=== PATIENT | male | born 1945 | race Hispanic/Latino ===

== ENCOUNTER 2017-08-23 11:38 | Emergency (ER) | payer BC, MEDICARE ==
--- NOTE | 2017-08-23 11:55 | C.PDOC ---
History Of Present Illness Patient BIBA s/p syncopal episode x 2. As per EMS, patient was helping friends move furniture in the heat/hot sun, did not have any breakfast or water. Patient has first syncopal episode that lasted approx 2 min, then another one in the ambulance that lasted approx 15 seconds. Patient was diaphoretic and hypotensive in the field. He denies headache, dizziness, chest pain, palpitations, SOB, abdominal pain, nausea/vomiting/diarrhea, visual changes, gait changes, facial droop, slurred speech, extremity weakness, senrory changes. 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) Activity At Onset Of Symptoms: Standing Associated Symptoms Preceding Syncopal Episode: Lightheadedness Past Medical History Reviewed: Historical Data, Nursing Documentation, Vital Signs Vital Signs: Last Vital Signs Temp 97.4 F L 08/23/17 15:03 Pulse 64 08/23/17 15:03 Resp 20 08/23/17 15:03 BP 135/85 08/23/17 15:03 Pulse Ox 99 08/23/17 15:03 - Medical History Other PMH: hyperlipidemia Family History: States: No Known Family Hx Review Of Systems Constitutional: Negative for: Fever, Chills Cardiovascular: Negative for: Chest Pain, Palpitations Respiratory: Negative for: Cough, Shortness of Breath Gastrointestinal: Negative for: Nausea, Vomiting, Abdominal Pain Neurological: Positive for: Other (syncope). Negative for: Weakness, Numbness, Change in Speech, Confusion, Seizures, Altered Mental Status, Headache Physical Exam - Physical Exam Appears: Well, Non-toxic, No Acute Distress Skin: Diaphoretic (mild) Head: Atraumatic, Normacephalic Eye(s): bilateral: Normal Inspection, PERRL, EOMI Neck: Normal, Normal ROM, No Midline Cervical Tenderness, No Paracervical Tenderness, No Step Off Deformity, Supple Cardiovascular: Rhythm Regular Respiratory: Normal Breath Sounds, No Rales, No Rhonchi, No Wheezing Gastrointestinal/Abdominal: Normal Exam, Bowel Sounds, Soft, No Tenderness Extremity: Normal ROM, No Pedal Edema, No Calf Tenderness Extremity: Bilateral: Atraumatic, Normal Color And Temperature, Normal ROM Neurological/Psych: Oriented x3, Normal Speech, Normal Cognition, Normal Cranial Nerves, No Cerebellar Signs, Normal Motor, Normal Sensation ED Course And Treatment - Laboratory Results Result Diagrams: 08/23/17 12:13 08/23/17 12:13 ECG: Interpreted By Me, Viewed By Me (NSR 81 bpm, normal axis, no acute ST/T wave changes) ECG Interpretation: Normal O2 Sat by Pulse Oximetry: 99 (RA) Pulse Ox Interpretation: Normal - CT Scan/US CT HEAD Other Rad Studies (CT/US): Read By Radiologist, Radiology Report Reviewed CT/US Interpretation: ccession No. : [id number]. Patient Name / ID : RHEA LYNNE / [id number]. Exam Date : 08/23/2017 12:33:13 ( Approved ). Study Comment : Sex / Age : M / 71Y. Creator : Ron Evans MD. Dictator : Jr. Systems Administrator : Communications Agent : Ron Evans MD. Approver2 : Report Date : 08/23/2017 13:02:48. My Comment : . PROCEDURE: CT HEAD WITHOUT CONTRAST. HISTORY: syncope x 2. COMPARISON: None available. TECHNIQUE: Axial computed tomography images were obtained through the head/brain without intravenous contrast. Radiation dose: Total exam DLP = 893.31 mGy-cm. This CT exam was performed using one or more of the following dose reduction techniques: Automated exposure control, adjustment of the mA and/or kV according to patient size, and/or use of iterative reconstruction technique. FINDINGS: HEMORRHAGE: No intracranial hemorrhage. BRAIN: No evidence of large acute infarct. Minor chronic periventricular white matter ischemic changes. . There are a few tiny chronic appearing bilateral basal nuclei lacunar type infarcts. Moderate volume loss somewhat more central evidenced by slight disproportionate enlargement of the ventricles compared the sulci. There are no parenchymal nor extra-axial masses. Prominent cisterna magna. VENTRICLES: No obstructive hydrocephalus. CALVARIUM: No acute calvarial fractures. PARANASAL SINUSES: Complete opacification left maxillary antrum formation with slight bowing of the medial wall; rule out mucocele formation. There is also subtotal opacification of the ethmoid air complex on left side greater than right extending superiorly into the frontal sinus. . There is sclerosis and under pneumatization of both mastoid air complexes. Partial opacification many of the left sided inferior mastoid air cells. MASTOID AIR CELLS: Unremarkable as visualized. No inflammatory changes. OTHER FINDINGS: None. IMPRESSION: No acute intracranial hemorrhage. Minor chronic periventricular white matter ischemic changes. 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 Moderate central volume loss. Complete opacification left maxillary antrum with slight bone medial wall. Rule out mucocele. Subtotal opacification ethmoid air complex extending superiorly into the frontal sinus. Progress Note: Blood work, EKG, CT head ordered. Patient given IV NS bolus x 2 liters. Orthostatic vitals done and WNL. Reevaluation Time: 15:05 Reassessment Condition: Improved (On reassessment, patient is resting comfortably and states he feels much better. Vitals have improved. Patient offered inpatient observation, however he refused and wants to be dischared home. Syncopal episodes likely due to dehydration/heat exhaustion, not having breaksfast/water. Patient instructed to drink plenty of fluids, get rest and follow up with PMD in 1-2 days. Copies of all studies/labs given to patient/ family and results explained. He understands he should return to ED immediately if he has any concerning symptoms.) Critical Care Time - Critical Care Note Total Time (in mins): 35 Documented critical care: time excludes all time spent performing seperately billable procedures. Disposition Counseled Patient/Family Regarding: Studies Performed, Diagnosis, Need For Followup - Disposition Referrals: Winston Palomo MD [Medical Doctor] - Disposition: HOME/ ROUTINE Disposition Time: 15:05 Condition: STABLE Additional Instructions: FOLLOW UP WITH YOUR PRIMARY DOCTOR IN 1-2 DAYS, BRING COPIES OF BLOOD WORK/ STUDIES DONE IN ER DRINK PLENTY OF WATER RETURN TO EMERGENCY ROOM IF YOU HAVE ANY CONCERNING SYMPTOMS Instructions: Heat Exhaustion and Heat Stroke (DC) Forms: [employer] (Kosovan) Print Language: URUGUAYAN - Clinical Impression Clinical Impression: Syncope, Heat exhaustion
[2017-08-23] MEDS ORDERED: Sodium Chloride 0.9% 1,000 ML IV ONE ×2 (12:08→13:29)
[2017-08-23 12:17] LABS: BASO # 0.1 K/uL (0.0-0.2); BASO % 1.8 % (0.0-2.0); EOS # 0.3 K/uL (0.0-0.7); HEMOGLOBIN 14.2 g/dL (12.0-18.0); LYMPH % 43.7 % (20.0-40.0); MEAN CELL VOLUME 90.3 fL (80.0-94.0); MEAN CORPUSCULAR HEMOGLOBIN 31.2 pg (27.0-31.0); MEAN CORPUSCULAR HGB CONC 34.5 g/dL (33.0-37.0); MEAN PLATELET VOLUME 8.5 fL (7.2-11.7); MONO # 0.4 K/uL (0.0-0.8); MONO % 5.7 % (0.0-10.0); NEUT % 43.8 % (50.0-75.0); RBC 4.55 Mil/uL (4.40-5.90); RED CELL DISTRIBUTION WIDTH 13.1 % (11.5-14.5); WHITE BLOOD COUNT 6.9 K/uL (4.8-10.8)
[2017-08-23 12:25] LABS: INR 1.1; PROTHROMBIN TIME 11.8 SECONDS (9.7-12.2)
[2017-08-23 12:29] LABS: ALB/GLOB RATIO 1.4 (1.0-2.1); ALBUMIN 4.5 g/dL (3.5-5.0); ALT/SGPT 36 U/L (21-72); AST/SGOT 40 U/L (17-59); BLOOD UREA NITROGEN 24 mg/dL (9-20); CALCIUM 9.4 mg/dl (8.6-10.4); GFR AFRICAN-AMERICAN > 60; GFR NON-AFRICAN AMERICAN 54
[2017-08-23 12:39] LABS: CK-MB 4.76 ng/mL (0.0-3.38)
--- NOTE | 2017-08-23 13:04 | CT ---
PROCEDURE: CT HEAD WITHOUT CONTRAST. HISTORY: syncope x 2 COMPARISON: None available. TECHNIQUE: Axial computed tomography images were obtained through the head/brain without intravenous contrast. Radiation dose: Total exam DLP = 893.31 mGy-cm. This CT exam was performed using one or more of the following dose reduction techniques: Automated exposure control, adjustment of the mA and/or kV according to patient size, and/or use of iterative reconstruction technique. FINDINGS: HEMORRHAGE: No intracranial hemorrhage. BRAIN: No evidence of large acute infarct. Minor chronic periventricular white matter ischemic changes. . There are a few tiny chronic appearing bilateral basal nuclei lacunar type infarcts. Moderate volume loss somewhat more central evidenced by slight disproportionate enlargement of the ventricles compared the sulci. There are no parenchymal nor extra-axial masses. Prominent cisterna magna. VENTRICLES: No obstructive hydrocephalus. CALVARIUM: No acute calvarial fractures PARANASAL SINUSES: Complete opacification left maxillary antrum formation with slight bowing of the medial wall; rule out mucocele formation. There is also subtotal opacification of the ethmoid air complex on left side greater than right extending superiorly into the frontal sinus. . There is sclerosis and under pneumatization of both mastoid air complexes. Partial opacification many of the left sided inferior mastoid air cells. MASTOID AIR CELLS: Unremarkable as visualized. No inflammatory changes. OTHER FINDINGS: None. IMPRESSION: No acute intracranial hemorrhage. Minor chronic periventricular white matter ischemic changes. 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 Complete opacification left maxillary antrum with slight bone medial wall. Rule out mucocele. Subtotal opacification ethmoid air complex extending superiorly into the frontal sinus.
[2017-08-23 13:55] LABS: SQUAMOUS EPITHIAL 1 /hpf (0-5); URINE BILIRUBIN NEGATIVE (NEGATIVE); URINE BLOOD NEGATIVE (NEGATIVE); URINE CLARITY Clear (Clear); URINE COLOR Yellow (YELLOW); URINE GLUCOSE (UA) NORMAL (Normal); URINE LEUKOCYTE ESTERASE NEG Leu/uL (Negative); URINE PROTEIN 1+ mg/dL (NEGATIVE); URINE UROBILINOGEN NORMAL mg/dL (0.2-1.0)
[2017-08-23] MEDS ORDERED: Sodium Chloride 0.9% 1,000 ML ONE (14:10)
[2017-08-23 14:34] VITALS: RESP 20
[2017-08-23 15:04] VITALS: BP 135/85; PULSE 64; TEMP 97.4; O2SAT 99
--- NOTE | 2017-08-25 23:31 | CARD ---
APPROVED REPORT EKG Measurement Heart [id number] CO 144P-9 [id number] <Conclusion> Normal sinus rhythm Normal ECG
== END 2017-08-23 15:12 | disposition home or self-care (01) ==
LOC: C.ER 11:38
DX: T67.5XXA Heat exhaustion, unspecified, initial encounter (principal); R55 Syncope and collapse; E78.5 Hyperlipidemia, unspecified
CPT/HCPCS: 70450; 80053; 81001; 82550; 82553; 82948; 84484; 85025; 85610; 85730; 93005; 96360; 96361; 99285; J7030